=== PATIENT | male | born 1955 | race Caucasian/White ===

== ENCOUNTER 2022-03-29 16:59 | Emergency (ER) | payer BC ==
[2022-03-29] MEDS ORDERED: XYLOCAINE 1% HCL 20 ML MDV IJ ONE (17:09)
[2022-03-29] MEDS ORDERED: XYLOCAINE 1% HCL 20 ML MDV ONE (17:10)
--- NOTE | 2022-03-29 17:23 | ERPHSYRPT ---
- History of Present Illness Time Seen by Provider: 03/29/22 17:03 Source: patient Exam Limitations: no limitations Patient Subjective Stated Complaint: laceration to upper R arm Triage Nursing Assessment: pt to ED c/o laceration to R upper arm. pt was pull starting lawn equiptment when arm caught on a bolt. rates 3/10 stinging pain. wrapped in pressure dressing on arrival to ED, bleeding controlled, minimal blood on dressing. full sensation, good color, full ROM, strong pulses distal to injury. Physician History: 67-year-old male presented in the ER with chief complaint of laceration right lower arm above elbow when he tried to pull start lawnmower and the bolt caught him. There was bleeding initially, stopped with applying pressure. Complaining of mild dull aching pain with movements and palpation. Denies any difficulty movements at elbow wrist, fingers. No numbness or tingling in the hand/forearm. Up-to-date with tetanus. No injury anywhere else. Timing/Duration: today, sudden Quality: painful Severity: mild Location: extremities Possible Causes: other Associated Symptoms: denies symptoms Allergies/Adverse Reactions: Sulfa (Sulfonamide Antibiotics) Allergy (Verified 03/29/22 17:06) Hives Hx Tetanus, Diphtheria Vaccination/Date Given: Yes Hx Influenza Vaccination/Date Given: Yes Hx Pneumococcal Vaccination/Date Given: Yes Immunizations Up to Date: Yes Travel Risk - International Travel Have you traveled outside of the country in past 3 weeks: No - Coronavirus Screening Are you exhibiting any of the following symptoms?: No Close contact with a COVID-19 positive Pt in past 14-21 Days: No - Vaccine Status Have you recieved a Covid-19 vaccination: Yes [employer]: [employer] - Vaccination Dates Date of 2cond Vaccination (if applicable): March 2021 - Review of Systems Constitutional: No Symptoms Ears, Nose, & Throat: No Symptoms Respiratory: No Symptoms Cardiac: No Symptoms Abdominal/Gastrointestinal: No Symptoms Musculoskeletal: Injury Skin: Skin Lesions Neurological: No Symptoms Endocrine: No Symptoms Hematologic/Lymphatic: No Symptoms Immunological/Allergic: No Symptoms - Past Medical History Pertinent Past Medical History: Yes Cardiac History: Coronary Artery Disease GI Medical History: GERD Other Medical History: sjogrens syndrome - Past Surgical History Past Surgical History: Yes Cardiac: Cardiac Catheterization Gastrointestinal: Appendectomy, Cholecystectomy, Hernia Repair Other Surgical History: gastric bypass,. bilateral leg veins - Social History Smoking Status: Never smoker Exposure to second hand smoke: No Drug Use: none Patient Lives Alone: No - Nursing Vital Signs Nursing Vital Signs: Initial Vital Signs Temperature 97.6 F 03/29/22 17:08 Pulse Rate 75 03/29/22 17:08 Respiratory Rate 18 03/29/22 17:08 Blood Pressure 146/83 03/29/22 17:08 O2 Sat by Pulse Oximetry 96 03/29/22 17:08 Pain Scale Pain Intensity 3 - Physical Exam General Appearance: no apparent distress, alert Eye Exam: PERRL/EOMI Ears, Nose, Throat Exam: normal ENT inspection Neck Exam: normal inspection, supple, full range of motion Respiratory Exam: normal breath sounds, lungs clear Cardiovascular Exam: regular rate/rhythm, normal heart sounds Back Exam: normal inspection, normal range of motion Extremity Exam: lacerations (4.5 cm laceration right distal arm above medial elbow. Muscle deep with no laceration of muscles. Intact range of motion at elbow wrist and fingers. Intact distal neurovascular. No active spurting or bruising.), tenderness Neurologic Exam: alert, oriented x 3, cooperative Skin Exam: normal color SpO2 Interpretation: normal SpO2: 96 O2 Delivery: Room Air Procedures - Laceration/Wound Repair Right Arm Time of Procedure: 17:22 Wound Location: Right Wound Length (cm): 4.5 Wound's Depth, Shape: into muscle Wound Explored: clean Irrigated: Yes Hibiclens Prep: Yes Anesthesia: 1% Lidocaine Volume Anesthetic (ccs): 7 Wound Repaired With: sutures Suture Size/Type: 4-0, prolene Number of Sutures: 6 Sterile Dressing Applied?: Yes Ordered Tests: Medication Summary Discontinued Medications Generic Name Dose Route Start Last Admin Trade Name Preethi PRN Reason Stop Dose Admin Lidocaine HCl 10 ml 03/29/22 17:09 03/29/22 17:11 Lidocaine Hcl 1% 20 Ml Mdv 20 Ml Ml IJ 03/29/22 17:10 10 ml STAT ONE Administration Lidocaine HCl Confirm 03/29/22 17:10 Lidocaine Hcl 1% 20 Ml Mdv 20 Ml Ml Administered 03/29/22 17:11 Dose 10 ml .ROUTE .STK-MED ONE - Progress Progress: improved Progress Note: 03/29/22 17:22 Laceration is repaired. Recommended taking Tylenol as needed for pain. Intermittent ice application. Outpatient follow-up. Discussed signs symptoms of infection and wound care which patient seems understanding. Counseled pt/family regarding: diagnosis, need for follow-up - Departure Departure Disposition: Home Clinical Impression: Arm laceration Condition: Stable Critical Care Time: No Referrals: RO GONZALEZ MD [ACTIVE STAFF] - Follow Up with PCP/3 days Instructions: Laceration Repair With Stitches (DC) Additional Instructions: Take Tylenol as needed. Intermittent ice application. Keep it clean. Follow- up with primary care for reevaluation. Suture removal in 10-14 days. Return to ER for increasing pain swelling redness, discharge, fever chills etc.
[2022-03-29] MEDS ORDERED: BACIGUENT PACKET TP ONE (17:32)
[2022-03-29] MEDS ORDERED: BACIGUENT PACKET ONE (17:32)
[2022-03-29 17:44] VITALS: BP 118/74; PULSE 64; O2SAT 95
== END 2022-03-29 17:51 | disposition home or self-care (01) ==
LOC: ED 16:59
DX: S41.111A Laceration without foreign body of right upper arm, initial encounter (principal); W20.8XXA Other cause of strike by thrown, projected or falling object, initial encounter; Y93.H9 Activity, other involving exterior property and land maintenance, building and construction; Y92.007 Garden or yard of unspecified non-institutional (private) residence as the place of occurrence of the external cause
CPT/HCPCS: 12002; 96372; 99283; A9270-GY

== ENCOUNTER 2024-10-13 17:04 | Emergency (ER) | payer MEDICARE ==
--- NOTE | 2024-10-13 17:11 | ERPHSYRPT ---
- History of Present Illness Time Seen by Provider: 10/13/24 17:09 Source: patient, family Exam Limitations: no limitations Physician History: This patient is a 69-year-old white male patient who is status post left hip replacement within the last 30 days. Today, while he was ambulating the midportion of his skin incision dehisced. Serosanguineous fluid leaked out. He has not had any problems prior to this. Patient called his orthopedic surgeon who told him to come to the emergency department and have a few giles or sutures placed and to be placed on antibiotics and the orthopedic surgeon will see him tomorrow morning, 10/14/2024. Timing/Duration: today Severity: mild Location: extremities (Left lateral thigh) Associated Symptoms: denies symptoms Allergies/Adverse Reactions: Sulfa (Sulfonamide Antibiotics) Allergy (Verified 03/29/22 17:06) Hives Hx Tetanus, Diphtheria Vaccination/Date Given: Yes Hx Influenza Vaccination/Date Given: Yes Hx Pneumococcal Vaccination/Date Given: Yes Travel Risk - International Travel Have you traveled outside of the country in past 3 weeks: No - Emerging Infectious Disease Are you exhibiting symptoms associated with any current EIDs: No - Review of Systems Constitutional: No Symptoms Eyes: No Symptoms Ears, Nose, & Throat: No Symptoms Respiratory: No Symptoms Cardiac: No Symptoms Abdominal/Gastrointestinal: No Symptoms Genitourinary Symptoms: No Symptoms Musculoskeletal: No Symptoms Skin: Other (Skin incision dehiscencepostsurgical) Neurological: No Symptoms Psychological: No Symptoms Endocrine: No Symptoms Hematologic/Lymphatic: No Symptoms Immunological/Allergic: No Symptoms All Other Systems: Reviewed and Negative - Past Medical History Neurological History: No Pertinent History Cardiac History: High Cholesterol Respiratory History: No Pertinent History Endocrine Medical History: Diabetes Type II Musculoskeletal History: Arthritis Other Medical History: BARIATIC SX, VALLEY FEVER WHILE WATCHING LUNG NODULES, B TKR, 2 HERNIAS WITH MESH 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 bilateral leg veins - Social History Smoking Status: Never smoker Exposure to second hand smoke: No Drug Use: none Patient Lives Alone: No - Nursing Vital Signs Nursing Vital Signs: Initial Vital Signs Temperature 97.7 F 10/13/24 17:15 Pulse Rate 86 10/13/24 17:15 Respiratory Rate 18 10/13/24 17:15 Blood Pressure 140/84 10/13/24 17:15 O2 Sat by Pulse Oximetry 97 10/13/24 17:15 Pain Scale Pain Intensity 0 - Physical Exam General Appearance: no apparent distress, alert Eye Exam: PERRL/EOMI, eyes nml inspection Ears, Nose, Throat Exam: normal ENT inspection, moist mucous membranes Neck Exam: normal inspection, non-tender, supple, full range of motion Respiratory Exam: No chest tenderness Gastrointestinal/Abdomen Exam: No tenderness Rectal Exam: not done Back Exam: normal inspection, normal range of motion, No CVA tenderness, No vertebral tenderness Extremity Exam: normal range of motion, pelvis stable, other (The left lateral postsurgical left hip replacement incision site shows no evidence of infection. The midportion of the skin incision has dehisced for distance of approximately 3 to 3-1/2 cm. It is superficial. There is no odor and there is no further drainage. There is no expressible fluid or pu) Skin Exam: normal color, warm, dry Lymphatic Exam: No adenopathy SpO2 Interpretation: normal O2 Delivery: Room Air Procedures - Laceration/Wound Repair Left Lateral Thigh Time of Procedure: 18:00 Wound Location: Left, upper leg (Lateral thigh postop incision site) Wound Length (cm): 3.5 Wound's Depth, Shape: superficial Wound Explored: clean (Wound explored to the base in a bloodless field. No fo reign body noted.) Irrigated: Yes Hibiclens Prep: Yes Wound Repaired With: Giles (3 skin giles were placed to loosely approximate skin edges) - Course Nursing assessment & vital signs reviewed: Yes Ordered Tests: Medication Summary Discontinued Medications Generic Name Dose Route Start Last Admin Trade Name Freq PRN Reason Stop Dose Admin Cephalexin HCl 500 mg 10/13/24 18:24 10/13/24 18:28 Cephalexin Mh500 Mg Capsule PO 10/13/24 18:25 500 mg STAT ONE Administration Cephalexin HCl Confirm 10/13/24 18:27 Cephalexin Mh500 Mg Capsule Administered 10/13/24 18:28 Dose 500 mg .ROUTE .STK-MED ONE - Progress Progress: improved Progress Note: 10/13/24 18:51 My medical decision making of the assignment of low complexity is based on review of the patient's past medical history, review the patient's medication list, reviewed patient drug allergy list, history present illness and physical findings on examination. The workup in this patient does not require any radiographic or laboratory studies. Together, the patient and I agree that we would place 3 giles to loosely approximate the skin edge then cover this site of repair with nonstick gauze and a pressure dressing. Patient will follow-up tomorrow morning, 10/14/2024 at his orthopedic surgeons office for further evaluation management. We provided him with cephalexin 500 mg orally 1 capsule here in the emergency department and we will remotely send a prescription for 5 more days to his pharmacy. Counseled pt/family regarding: diagnosis, need for follow-up Medical Desision Making - Diagnostic Testing Diagnostic test were ordered, analyzed, and reviewed by me: No - Risk of complications The pt has a mod risk of morbidity or mortality based on: Need for prescription drug management - Departure Departure Disposition: Home Clinical Impression: Postoperative dehiscence of skin wound Condition: Stable Critical Care Time: No Referrals: REVA BAL MS, DO [Primary Care Provider] - Follow up/PCP as directed Additional Instructions: Keep the current pressure dressing in place until tomorrow when you are evaluated by orthopedic surgeon. Take your antibiotics and other medications as prescribed. Prescriptions: Cephalexin Mh 500 mg [Keflex 500 mg] 500 mg PO TID #15 cap
[2024-10-13 17:20] VITALS: RESP 18; TEMP 97.7
[2024-10-13 18:09] VITALS: BP 128/65; PULSE 72; O2SAT 98
[2024-10-13] MEDS ORDERED: KEFLEX 500 MG ONE (18:27)
[2024-10-13] MEDS: KEFLEX 500 MG PO ONE (18:28)
== END 2024-10-13 19:07 | disposition home or self-care (01) ==
LOC: ED 17:04
DX: T81.31XA Disruption of external operation (surgical) wound, not elsewhere classified, initial encounter (principal); E78.5 Hyperlipidemia, unspecified; E11.9 Type 2 diabetes mellitus without complications; Z79.899 Other long term (current) drug therapy
CPT/HCPCS: 12002; 99282; 99283; A9270-GY